=== PATIENT | male | born 1940 | race Caucasian/White ===

== ENCOUNTER → 2016-11-10 | Outpatient (CLI) | payer MEDICARE | LOC: KOH-I 09:44 | DX: R10.9 Unspecified abdominal pain (principal); R63.4 Abnormal weight loss | CPT/HCPCS: 76700 ==

== ENCOUNTER → 2020-11-25 | Outpatient (CLI) | payer MEDICARE | LOC: KOH-I 10:19 | DX: M54.2 Cervicalgia (principal); M47.812 Spondylosis without myelopathy or radiculopathy, cervical region | CPT/HCPCS: 72040 ==

== ENCOUNTER → 2021-10-05 | Outpatient (CLI) | payer MEDICARE | LOC: US 11:38 | DX: I83.892 Varicose veins of left lower extremity with other complications (principal); M79.89 Other specified soft tissue disorders | CPT/HCPCS: 93971 ==